=== PATIENT | female | born 1980 ===

== ENCOUNTER 2016-06-21 05:06 | Emergency (ER) | payer SELFPAY ==
[~2016-06-21] VITALS: Ht 167.6 cm; Wt 109.0 kg
[2016-06-21 05:32] VITALS: Ht 167.6 cm; Wt 109.0 kg
== END 2016-06-21 05:32 | disposition left against medical advice (07) ==
LOC: FTE 05:06
DX: Z53.21 Procedure and treatment not carried out due to patient leaving prior to being seen by health care provider (principal)